=== PATIENT | male | born 1985 | race Caucasian/White ===

== ENCOUNTER 2016-08-17 18:33 | Emergency (ER) | payer OTHER ==
[~2016-08-17 18:33] MED LIST: ERYTHROMYCIN3.5 GM OP; NORCO 5/325 TAB1 TAB PO; VICODIN 5/500 T1 TAB PO
== END 2016-08-17 19:30 ==
LOC: EDMED 18:33
DX: S16.1XXA Strain of muscle, fascia and tendon at neck level, initial encounter (principal); Z87.891 Personal history of nicotine dependence; Z90.89 Acquired absence of other organs; V49.50XA Passenger injured in collision with unspecified motor vehicles in traffic accident, initial encounter; Y92.410 Unspecified street and highway as the place of occurrence of the external cause